=== PATIENT | female | born 1965 | race Two or more races ===

== ENCOUNTER 2017-08-21 22:00 | Emergency (ER) | payer OTHER ==
[~2017-08-21] VITALS: Ht 165.1 cm; Wt 99.8 kg
[2017-08-21] MEDS ORDERED: COZAAR25 MG (22:57)
[2017-08-22] MEDS ORDERED: DOLOGESIC-DF 51 EACH PO (03:12)
== END 2017-08-22 03:20 | disposition home or self-care (01) ==
LOC: ER 22:00 → EDBD 22:42 → ER 22:42
DX: G44.89 Other headache syndrome (principal); I10 Essential (primary) hypertension

== ENCOUNTER 2017-08-23 09:28 | Outpatient (CLI) | payer OTHER ==
[~2017-08-23 09:28] MED LIST: COZAAR25 MG; DOLOGESIC-DF 51 EACH PO
== END 2017-08-23 10:32 | disposition home or self-care (01) ==
LOC: MRI 09:28
DX: I67.89 Other cerebrovascular disease (principal)
CPT/HCPCS: 70552

== ENCOUNTER 2017-08-24 00:05 | Inpatient (IN) | payer OTHER ==
[~2017-08-24] VITALS: Ht 165.1 cm; Wt 113.4 kg
[2017-08-26] MEDS ORDERED: VERAPAMIL ER120 MG PO (09:42)
== END 2017-08-27 13:23 | disposition home or self-care (01) | DRG 103 ==
LOC: ER 00:05 → SURH 09:46 → SEC-K 09:46 → SURH 18:45
PROVIDERS: Anesthesiology
PROC: 8E0ZXY6 Isolation (ICD-10-PCS; 2017-08-24)
PROC: 009U3ZX Drainage of Spinal Canal, Percutaneous Approach, Diagnostic (ICD-10-PCS; principal; 2017-08-24 17:00)
PROC: B33RZZZ Magnetic Resonance Imaging (MRI) of Intracranial Arteries (ICD-10-PCS; 2017-08-26)
DX: G44.011 Episodic cluster headache, intractable (principal); I10 Essential (primary) hypertension
CPT/HCPCS: 70544

== ENCOUNTER 2018-07-28 10:16 | Outpatient (CLI) | payer OTHER ==
[~2018-07-28 10:16] MED LIST changes: +VERAPAMIL ER120 MG PO
== END 2018-07-28 13:44 | disposition home or self-care (01) ==
LOC: LAB 10:16
DX: J11.1 Influenza due to unidentified influenza virus with other respiratory manifestations (principal); J06.9 Acute upper respiratory infection, unspecified